=== PATIENT | male | born 1945 | race Caucasian/White ===

== ENCOUNTER → 2019-10-25 09:15 | Outpatient (CLI) | payer MEDICARE, SELFPAY ==
--- NOTE | 2019-10-25 09:20 | AVDS_ITS ---
Reason For Study: Malfunction of device-Clot LEFT Lt Brachial artery, 40.2/9.5 cm/sec. Lt Brachial artery, 78.2 cc/sec. Lt Prox anastomosis, 253.3/140.9 cm/sec. Lt Prox anastomosis, 4544 cc/sec. Lt Prox Graft, 406/232.6 cm/sec. Lt Prox Graft, 9416 cc/sec. Lt Mid Graft, 186.7/104.3 cm/sec. Lt Mid Graft, 6465 cc/sec. Lt Distal Graft, 157/87.1 cm/sec. Lt Distal Graft, 2936 cc/sec. Lt Outflow, 73.2/46.2 cm/sec. Lt Outflow, 3305 cc/sec. Prelim to Olimpia. Interpretation Summary High flow left upper arm brachial cephalic arterovenous fistula. Maximal diameter 1.54 x 1.62cm mid fistula No thrombus identified. Imaging of proximal left subclavian vein limited by anatomy. Unable to decipher possible more central stenosis. Ordering Physician: Olimpia Dunaway Referring Physician: Rob Guerrero Performed By: Carla Cedeno RVT
== END ==
PROVIDERS: Family Provider Family Medicine; PCP Family Medicine; Referring Provider Surgery; Visit Provider Surgery
DX: T82.868A Thrombosis due to vascular prosthetic devices, implants and grafts, initial encounter (principal)
CPT/HCPCS: 93990

== ENCOUNTER 2020-08-19 05:37 | Day surgery (SDC) | payer MEDICARE, SELFPAY ==
[2020-07-09 09:56] VITALS: BMI 28.3
--- NOTE | 2020-08-12 09:34 | EKG12_ITS ---
Test Reason : PREOP Blood Pressure : / mmHG Vent. Rate : 068 BPM Atrial Rate : 068 BPM P-R Int : 200 ms QRS Dur : 092 ms QT Int : 388 ms P-R-T Axes : -17 -34 015 degrees QTc Int : 412 ms Sinus rhythm with Premature atrial complexes Left axis deviation Abnormal ECG Confirmed by FATOU MCCOLLUM, KD ([id number]), electronic news gathering editor LYDIA VILLEGAS ([id number]) on 08/13/2020 1:37:34 PM Referred By: Galindo Lakhani Confirmed By:KD LAINEZ MD
[2020-08-12 10:36] LABS: Hemoglobin 12.7 g/dL (13.0-16.5); Mean Corp Hgb Conc 31.8 g/dL (32-36); Mean Corpuscular Volume 94.3 fL (80-94); Mean Platelet Vol. 9.9 fl (6.2-12.0); Platelet Count 150 K/mm3 (150-450); RBC Distribution Width CV 15.6 % (11.6-14.6); RBC Distribution Width SD 52.7 fl (35.1-43.9); Red Blood Count 4.24 M/mm3 (4.6-6.2); White Blood Count 4.3 K/mm3 (4.4-11.0)
[2020-08-12 11:15] LABS: Anion Gap 3 (5-15); BUN 17 mg/dL (7-18); BUN/Creat Ratio 14.2 RATIO (10-20); Calcium,Total 8.3 mg/dL (8.5-10.1); Chloride 108 mmol/L (98-107); EST Glomerular Filtration Rate 62 mL/min (>60); Est Glom Filt Rate - Afr Amer 76 mL/min (>60); Glucose 75 mg/dL (74-106); Potassium 4.6 mmol/L (3.5-5.1); Sodium Level 141 mmol/L (136-145)
[2020-08-19] VITALS (7 sets, daily range): BP systolic 107–136; BP diastolic 68–86; PULSE 64–70; RESP 16–18; TEMP 36.1–37.1; O2SAT 94–100; BMI 28.3
--- NOTE | 2020-08-19 06:31 | PCM.HP.BLA ---
Problem List (1) Problem with dialysis access Status: Acute Qualifiers: History and Physical Date of Admission: 08/19/20 Intake Visit Reasons: DISCUSS REMOVAL OF FISTULA Damage Appraiser Required: No Is patient in pain?: Yes (Left upper arm pain on and off) Allergies chocolate flavor Allergy (Verified 07/09/20 09:57) Swelling levofloxacin Allergy (Verified 07/09/20 09:57) Swelling milk Allergy (Verified 07/09/20 09:57) Swelling Medications Acetaminophen [Tylenol] 325 mg PO PRN PRN 04/18/14 [History Confirmed 07/09/20] clopidogrel 75 mg tablet 75 mg PO DAILY 10/25/19 [History Confirmed 07/09/20] lovastatin 20 mg tablet 20 mg PO DAILY 10/25/19 [History Confirmed 07/09/20] ascorbate calcium (vitamin C) 500 mg tablet 500 mg PO DAILY 07/09/20 [History Confirmed 07/09/20] ferrous sulfate 325 mg (65 mg iron) tablet 325 mg PO DAILY 07/09/20 [History Confirmed 07/09/20] levothyroxine 100 mcg capsule 100 mcg PO DAILY 07/09/20 [History] metoprolol tartrate 25 mg tablet 25 mg PO BID PRN 07/09/20 [History Confirmed 07/09/20] multivitamin 1 tab PO DAILY 07/09/20 [History Confirmed 07/09/20] omeprazole 40 mg capsule,delayed release 40 mg PO DAILY 07/09/20 [History Confirmed 07/09/20] spironolactone 25 mg tablet 25 mg PO DAILY PRN 07/09/20 [History Confirmed 07/09/20] vitamin B complex 1 tab PO DAILY 07/09/20 [History Confirmed 07/09/20] [facility] Medical History Problem with dialysis access (Acute) Renal failure (Acute) High cholesterol (Acute) Reflux gastritis (Acute) Hypothyroid (Acute) HTN (hypertension) (Chronic) Stomach cancer (Acute) Surgical History S/P laparoscopic cholecystectomy (Acute) s/p chest catheter placement (Acute) S/P arteriovenous (AV) fistula creation (Acute) S/P gastrectomy (Acute) Family History Father Cancer Brother Cancer Sister Cancer Social History (Updated 07/09/20 @ 15:[address] Galindo Lakhani MD) Smoking Status: Former smoker alcohol intake: never substance use type: does not use caffeine: Yes HPI HPI HPI: ANNAMARIE TORRES, is a 75 M who presents to the office today for surgical consultation regarding a left upper arm brachiocephalic arteriovenous hemodialysis fistula. Since its creation the patient has never required its use. He is complaining of intermittent numbness of various fingers of his left hand. He is complaining of discomfort at the antecubital space overlying the fistula in his upper arm. HPI HPI HPI: ANNAMARIE TORRES, is a 75 M who presents to the office today for ROS General General: Yes fatigue; no weight change, appetite, colon cancer, breast cancer or weakness HEENT HEENT: No difficulty swallowing, eye injury, eye surgery, swollen glands or hoarseness Endo Endocrine: Yes thyroid disease; no diabetes mellitus, thyroid cancer, Hair loss, heat intolerance or cold intolerance Skin Skin: No rash or changing moles Breast Breast: No left breast lump, right breast lump, nipple discharge, breast pain, abnormal mammogram, abnormal US or breast enlargement Musc Musculoskeletal: Yes back problems and arthritis; no rheumatoid arthritis, gout or joint pain Cardio Cardiovascular: Yes murmur, atrial fibrillation, high blood pressure and heart stent; no pacemaker, heart disease, heart attack, palpitations, shortness of breat with exertion or chest pain Psych Psychiatric: Yes depression and anxiety; no hearing voices Resp Respiratory: No shortness of breath, Yes sleep apnea, No cough, No COPD, Yes asthma, No emphysema, No wheezing Gastro Gastrointestinal: Yes abdominal pain, Yes nausea or vomiting, No diarrhea, No constipation, No blood in stool, Yes acid reflux, Yes hemorrhoids, No ulcers, No gallbladder problem, No black,tarry stools Darryl Hematologic: Yes blood thinners, No blood disorders, Yes bleeding, No anemia, Yes blood clots Neuro Neurologic: No weakness Exam Const General: comfortable, no acute distress Nutritional Appearance: overweight Orientation: alert, awake HENMT Head: normal to inspection Chest Breast Palpation: No nipple discharge Resp Effort & Inspection: normal respiratory effort Auscultation: clear to auscultation bilaterally Cardio Rate: regular rate Rhythm: regular rhythm Heart Sounds: murmur GI Palpation: soft Auscultation: normal bowel sounds Neuro Cognition: normal cognition Extrem Other: Left upper arm brachiocephalic AV fistula with wonderful pulse and thrill and bruit. No discoloration. Minimal aneurysmal change. No palpable mass or tenderness at the antecubital space. Diminished radial pulse noted. Hand is viable but slightly cool. Psych Affect: normal affect Assessment & Plan Problems 1. Problem with dialysis access, initial encounter T82.579F Plan Problem with left upper extremity brachial cephalic AV fistula dialysis access. The patient would like to have this ligated. I have discussed with him technique, benefit, risk and alternatives. I do believe that he has a degree of arterial steal from the hand. Regarding the tenderness right at the fistula site that is less determinant. Careful dissection close to the arterial anastomosis will need to be performed prior to ligation. I would anticipate doing this under monitored anesthesia care and local anesthetic in the operating room. He has had an opportunity to ask and have questions answered. We will hold his clopidogrel for 2 days preprocedure. Copy: Dr. Suzette Lakhani M.D., F.A.C.S. Coding Level of Care Code Off vis,est,level 3 Diagnoses Problem with dialysis access, initial encounter T82.444N ??Encounter type: initial encounter I have re-examined the patient. There are no clinical changes since date of exam. Procedure Criteria Procedure Type: Elective COVID Risk Discussion: The surgeon/proceduralist and patient have discussed in detail the risk of exposure to and/or potential harm posed by the COVID-19 virus with having a surgery/procedure at this time versus the risk of delaying the surgery/procedure. It is not possible to know either the risk of delaying the surgery or procedure or chance of getting an infection with perfect accuracy, but a joint decision was made between the patient and the surgeon/proceduralist to proceed at this time with the scheduled surgery/procedure as indicated on the consent form.
[2020-08-19] MEDS: 0.9% Normal Saline 1,000 ML 15 ML IV (06:50)
--- NOTE | 2020-08-19 07:15 | DCINST_ITS ---
Discharge Diet: Renal Diet May shower in (days): 1 Lifting Restrictions: 10 pounds Call your doctor if your incision/area has: Continuous Slow Oozing, Sudden Increased Bleeding, Increased Pain/ Swelling, Increased Redness, Foul Smelling Discharge Call your doctor if you observe: Fever of 101 or Higher Suture Line Care: Avoid Pulling/Pushing, Avoid Pinching/Bending Additional Dressing/Incision Instructions:: Change or remove dressing in 2 days. Leave steri-strips in place for 1 week. Allergies/Adverse Reactions: Allergies levofloxacin Allergy (Verified 07/09/20 09:57) Swelling Medications to take at Discharge Acetaminophen [Tylenol] 325 mg PO PRN PRN 04/18/14 clopidogrel 75 mg tablet 75 mg PO DAILY 10/25/19 lovastatin 20 mg tablet 20 mg PO DAILY 10/25/19 ascorbate calcium (vitamin C) 500 mg tablet 500 mg PO DAILY 07/09/20 ferrous sulfate 325 mg (65 mg iron) tablet 325 mg PO DAILY 07/09/20 levothyroxine 100 mcg capsule 100 mcg PO DAILY 07/09/20 metoprolol tartrate 25 mg tablet 25 mg PO BID PRN 07/09/20 multivitamin 1 tab PO DAILY 07/09/20 omeprazole 40 mg capsule,delayed release 40 mg PO DAILY 07/09/20 spironolactone 25 mg tablet 25 mg PO DAILY PRN 07/09/20 vitamin B complex 1 tab PO DAILY 07/09/20 Albuterol IH (ProAir) [Proair Hfa (SP)Vent Pts] 1 - 2 puff INHALATION Q4H PRN PRN 08/09/20 Primary Care Physician: Rob Guerrero MD [Primary Care Provider] - Test Results: Test results from this visit will be discussed in further detail at your follow- up appointment, if applicable. Please Follow Up With: Galindo Lakhani MD - [phone] When: Call to make an appointment to be seen in about 10 days.
[2020-08-19] MEDS: Bupivacaine Mpf 0.5% 30 ML VIAL (07:49)
--- NOTE | 2020-08-19 08:03 | PCM.OPRPT ---
Problem List (1) Problem with dialysis access Status: Acute Qualifiers: Report of Operation Date of Procedure: 08/19/20 Pre-Operative Diagnosis: Arterial steal syndrome left upper extremity related to brachial cephalic arteriovenous hemodialysis fistula not in use Post-Operative Diagnosis: Same Surgery/Procedure Performed:: Ligation left upper extremity brachiocephalic arteriovenous hemodialysis fistula Description of Surgical Findings:: Timeout and informed consent was obtained. 75-year-old gentleman was taken to the operating place upon the table underwent monitored anesthesia care. Clean procedure no antibiotics required. The left upper extremity was sterilely prepped and draped. 1% lidocaine mixed 50-50 with 0.5% Marcaine was used as a local anesthetic. Total of 10 cc was used. Local was instilled. A sterile tourniquet was applied and inflated to 250 mmHg pressure. Total of 8 minutes was used. A longitudinal incision was created sharp and blunt dissection was used to identify the cephalic vein it was circumferentially dissected free down close to the anastomosis with the brachial artery. A 0 Nurolon was used to remove it and secure it. The tourniquet was released. Doppler signals were present in the radial artery. A second suture slightly closer to the brachial artery was placed using a suture ligature of 0 Nurolon. The radial artery was again checked with Doppler signals remained. The hand appeared viable. The fistula appeared to be successfully ligated. The wound was closed with a deep layer of interrupted 3-0 Vicryl. The skin edges approximated running septic or 4-0 Monocryl. Steri-Strips Telfa OpSite dressings applied. Counts correct. Blood loss minimal. He tolerated the procedure well. A dressing of Telfa OpSite soft roll and Julio wrap from the hand to the upper arm was applied. No apparent complications. He was taken to the recovery area in satisfactory condition. Specimens none. Drains none. Blood loss minimal. Galindo Lakhani M.D., F.A.C.S. Type of Anesthesia:: Local MAC Anesthesiologist: Fer Calixto
== END 2020-08-19 10:06 | disposition home or self-care (01) ==
LOC: SDC 05:38 → AC 05:38
PROVIDERS: Anesthesiology; PCP Family Medicine; Referring Provider Surgery; Visit Provider Surgery
PROC: (CPT 37607; principal; 2020-08-19 07:15)
DX: T82.898A Other specified complication of vascular prosthetic devices, implants and grafts, initial encounter (principal); R20.0 Anesthesia of skin; Z11.59 Encounter for screening for other viral diseases; D64.9 Anemia, unspecified; E78.00 Pure hypercholesterolemia, unspecified; E03.9 Hypothyroidism, unspecified; J45.909 Unspecified asthma, uncomplicated; K21.9 Gastro-esophageal reflux disease without esophagitis; F32.9 Major depressive disorder, single episode, unspecified; F41.9 Anxiety disorder, unspecified; E66.3 Overweight; Z68.28 Body mass index [BMI] 28.0-28.9, adult; Z79.02 Long term (current) use of antithrombotics/antiplatelets; Z79.899 Other long term (current) drug therapy; Z87.891 Personal history of nicotine dependence; Z95.5 Presence of coronary angioplasty implant and graft
CPT/HCPCS: 01770; 37607; 36415; 80048; 85027; 87635; 93005; C9803; J7040; A4216; J2405; U0003